=== PATIENT | male | born 1945 | race African-American/Black ===

== ENCOUNTER 2022-05-11 09:56 | Emergency (ER) | payer MEDICARE, MEDICAID ==
[~2022-05-11] VITALS: Ht 170.2 cm; Wt 108.0 kg
[2022-05-11 10:03] VITALS: BP 157/79
[2022-05-11] MEDS ORDERED: ACETAMINOPHEN 325MG TABLET PO ONE (14:00)
[2022-05-11] MEDS ORDERED: ACET-2708 MT (15:50)
[2022-05-11] MEDS ORDERED: METO-293 MT (15:50)
[2022-05-11 16:25] LABS: BASOPHILS % 0.5 % (0.0-2.0); HEMATOCRIT. 47.2 % (42.0-52.0); HEMOGLOBIN. 16.1 g/dL (14.0-18.0); LYMPHOCYTES % 35.5 % (20.0-50.0); MEAN CORPUSCULAR HEMOGLOBIN 32.3 pg (28.0-32.0); MEAN CORPUSCULAR VOLUME 94.8 fL (80.0-94.0); MEAN PLATELET VOLUME 7.9 fl (7.4-10.4); MONOCYTES % 5.6 % (2.0-8.0); NEUTROPHILS % 57.4 % (40.0-76.0); PLATELET 136 x1000/uL (130-400); RED BLOOD CELL COUNT 4.98 mill/uL (4.7-6.1); RED CELL DISTRIBUTION WIDTH 14.5 % (11.6-14.6)
[2022-05-11 16:34] LABS: CHLORIDE 105 mEq/L (98-107)
== END 2022-05-11 17:15 | disposition home or self-care (01) ==
LOC: ER 09:56
DX: R51.9 Headache, unspecified (principal); H93.11 Tinnitus, right ear; I10 Essential (primary) hypertension; I11.0 Hypertensive heart disease with heart failure; I50.9 Heart failure, unspecified
CPT/HCPCS: 36415; 80048; 80329; 85025; 99284